=== PATIENT | female | born 1950 | race Asian ===

== ENCOUNTER 2022-08-03 07:15 | Day surgery (SDC) | payer OTHER ==
[~2022-08-03] VITALS: Ht 157.5 cm; Wt 68.9 kg
[2022-08-03] MEDS ORDERED: fentaNYL citrate 0.05 MG/ML VIAL ONE (09:21)
[2022-08-03] MEDS: fentaNYL citrate 0.05 MG/ML VIAL IVP ONE (09:56)
[2022-08-03] MEDS: LIDOCAINE 2% 100 MG/5 ML UJET TP ONE (10:06)
== END 2022-08-03 11:05 | disposition home or self-care (01) ==
LOC: MDS 07:15 → MMU 07:16 → MDS 11:05
PROVIDERS: ATTEND Internal Medicine Gastroenterology
DX: Z12.11 Encounter for screening for malignant neoplasm of colon (principal); D12.2 Benign neoplasm of ascending colon; Z80.0 Family history of malignant neoplasm of digestive organs; I10 Essential (primary) hypertension; Z79.82 Long term (current) use of aspirin; Z79.899 Other long term (current) drug therapy; Z20.822 Contact with and (suspected) exposure to COVID-19
CPT/HCPCS: 45385; 87426; J3010